=== PATIENT | male | born 1995 | race Caucasian/White ===

== ENCOUNTER 2017-10-11 11:41 | Emergency (ER) | payer OTHER ==
[~2017-10-11] VITALS: Wt 98.2 kg
[2017-10-11] MEDS ORDERED: ONDANSETRON (ODT) 4 MG TAB ODT STA (12:06)
[2017-10-11] MEDS ORDERED: IBUP-1542 PO (12:09)
[2017-10-11] MEDS ORDERED: ONDA4TAB14 PO (12:10)
[2017-10-11] MEDS ORDERED: ACET/BUTAL/CAFF TAB PO ONE (12:30)
--- NOTE | 2017-10-11 20:19 | ERD ---
ER Documentation Chief Complaint Chief Complaint headache/vomiting since last night HPI Patient is a 22-year-old male who presents ED for concerns of a headache and vomiting. Patient states his vomiting started last night. Patient describes the pain to be in his occipital region radiating up to his frontal region bilaterally. Patient states that his current pain level is a 6 out of 10. Patient does work at [employer] is unsure if the recent cold weather and when the weather contributed to his headache. Patient denies any trauma or falls. Patient denies any sudden, 10 out of 10, rapid worsening of his headache. Patient denies that this is the worst headache of his life. Patient states he did take ibuprofen prior to arrival which has significantly decreased his pain. Patient states that his current pain was a 4 out of 10. Patient denies any blurry vision, photophobia, phonophobia, neck pain, neck stiffness, chest pain, shortness of breath, back pain or LOC. Patient states 1 hour ago he started to vomit. Patient states he did eat [employer] for lunch. Patient is unsure if something he ate is contributing to his vomiting. Patient denies any abdominal pain, dysuria, frequency, urgency or hematuria. No recent travel. No sick contacts. Patient is speaking in full sentences. Patient is ambulate without any difficulty. Patient denied any unilateral weakness. ROS All systems reviewed and are negative except as per history of present illness. Medications Home Meds Active Scripts Ondansetron (Ondansetron Odt) 4 Mg Tab.rapdis, 8 MG PO Q6H Y for NAUSEA AND/OR VOMITING, #10 TAB Prov:JUDY PERRIN PA-C 10/11/17 Ibuprofen* (Motrin*) 600 Mg Tab, 600 MG PO Q6, #20 TAB Prov:JUDY PERRIN PA-C 10/11/17 Allergies Allergies: Coded Allergies: amoxicillin (Verified Allergy, Intermediate, rash, 10/11/17) PMhx/Soc Medical and Surgical Hx: pt denies Medical Hx, pt denies Surgical Hx Hx Alcohol Use: Yes (beer:occassional) Hx Substance Use: No Hx Tobacco Use: No Smoking Status: Never smoker Physical Exam Vitals Vital Signs Date Time Temp Pulse Resp B/P Pulse Ox O2 Delivery O2 Flow Rate FiO2 10/11/17 11:48 98.1 78 20 113/62 96 Physical Exam GENERAL: Well-developed, well-nourished male. Appears in no acute distress. Speaking in full sentences. HEAD: Normocephalic, atraumatic. No deformities or ecchymosis. No obvious scalp lacerations or hematomas noted. EYE: Pupils equal, round, and reactive to light. EOMs intact. No conjunctival erythema. No eye discharge. ENT: External ear without any masses or tenderness. TM visualized bilaterally, non-erythematous, non-bulging. Nasal mucosa pink with no discharge. Oropharynx is pink without any tonsillar erythema or exudates. No uvula deviation. No kissing tonsils. NECK: Supple. No meningismus. Normal ROM of the neck. Bilateral trapezius muscles tender to palpation. LUNG: Clear to auscultation bilaterally. No rhonchi, wheezing, rales or coarse breath sounds. HEART: Regular rate and rhythm. No murmurs, rubs or gallops. ABDOMEN: Soft, nontender, and nondistended. Positive bowel sounds in all four quadrants. No rebound tenderness, no guarding. (-) McBurney's point tenderness. No CVA tenderness. BACK: No midline tenderness. EXTREMITIES: Equal pulses bilaterally. No peripheral clubbing, cyanosis or edema. No unilateral leg swelling. NEUROLOGIC: Alert and oriented x3, cooperative. Mood and affect appropriate to situation. Cranial nerves II through XII are grossly intact. Normal speech. Motor exam: 5/5 strength in upper and lower extremities. Sensory exam: Sensation intact to light touch on all four extremities. Cerebellar function exam: No dysmetria on jnyunz-cd-nliz and pjwg-td-pqrq test. Steady gait. No pronator drift. SKIN: Normal color. Warm and dry. No rashes or lesions. Results 24 hrs Current Medications Medications (Trade) Dose Ordered Sig/Robson Route PRN Reason Start Time Stop Time Status Last Admin Dose Admin Acetaminophen/ Butalbital/ Caffeine (Fioricet) 1 tab ONCE ONCE PO 10/11/17 12:30 10/11/17 12:31 DC 10/11/17 12:28 Ondansetron HCl (Zofran Odt) 4 mg ONCE STAT ODT 10/11/17 12:06 10/11/17 12:07 DC 10/11/17 12:15 Procedures/MDM MEDICAL DECISION MAKING: This is 22-year-old male presents with headache and vomiting. Headache started last night. Patient states he did take ibuprofen prior to his arrival which did significantly relieve his pain. Patient states her lunch this afternoon he had [employer]. Patient's vomiting started only after eating [employer]. Vital signs were reviewed. Patient was afebrile. Patient is not hypoxic. Patient denied current headache being the worst headache of his life. Patient denied any fevers, neck stiffness, visual changes or LOC. Full neurological exam was normal. Patient was given Fioricet and Zofran for his symptoms. Upon reevaluation, patient reported complete resolution of pain. Patient stated that he no longer had a headache. Patient also denied any additional episodes of nausea or vomiting. At this time of the patient's presentation is most consistent with tension versus migraine headache. Patient's vomiting may also be related to a foodborne illness that he developed after eating [employer]. Low suspicion for intracranial hemorrhage, meningitis, encephalitis, intracranial mass, glaucoma, preeclampsia, sinusitis, cluster headache, pancreatitis, cholecystitis, appendicitis. PRESCRIPTIONS: Ibuprofen, Zofran DISCHARGE: At this time, patient is stable for discharge and outpatient management. I have encouraged the patient to hydrate well. I have instructed the patient to follow- up with his/her primary care physician in 1-2 days. If symptoms persist, patient may need to see a specialist for further examinations and testing. I have instructed the patient to promptly return to the ER at any time for any new or worsening symptoms including increased increased pain, fever, nausea, vomiting, numbness, neck stiffness, visual changes, weakness or LOC. The patient and/or family expressed understanding of and agreement with this plan. All questions were answered. Home care instructions were provided. Disclaimer: Inadvertent spelling and grammatical errors are likely due to EHR/ dictation software use and do not reflect on the overall quality of patient care. Also, please note that the electronic time recorded on this note does not necessarily reflect the actual time of the patient encounter. Departure Diagnosis: Primary Impression: Headache Headache type: unspecified Headache chronicity pattern: unspecified pattern Intractability: not intractable Qualified Code: R51 - Nonintractable headache, unspecified chronicity pattern, unspecified headache type Additional Impression: Vomiting Vomiting type: unspecified Vomiting Intractability: unspecified Nausea presence: unspecified Qualified Code: R11.10 - Vomiting, intractability of vomiting not specified, presence of nausea not specified, unspecified vomiting type Condition: Stable Patient Instructions: Self-Care for Headaches, Vomiting (6Y-Adult) Referrals: [facility] YOU HAVE RECEIVED A MEDICAL SCREENING EXAM AND THE RESULTS INDICATE THAT YOU DO NOT HAVE A CONDITION THAT REQUIRES URGENT TREATMENT IN THE EMERGENCY DEPARTMENT. FURTHER EVALUATION AND TREATMENT OF YOUR CONDITION CAN WAIT UNTIL YOU ARE SEEN IN YOUR DOCTORS OFFICE WITHIN THE NEXT 1-2 DAYS. IT IS YOUR RESPONSIBILITY TO MAKE AN APPOINTMENT FOR FOLOW-UP CARE. IF YOU HAVE A PRIMARY DOCTOR --you should call your primary doctor and schedule an appointment IF YOU DO NOT HAVE A PRIMARY DOCTOR YOU CAN CALL OUR PHYSICIAN REFERRAL HOTLINE AT IF YOU CAN NOT AFFORD TO SEE A PHYSICIAN YOU CAN CHOSE FROM THE FOLLOWING [facility] [address] [email or web address] [address] [address] [facility] [email or web address] [address] [facility] [address] [facility] [address] [facility] [facility] [address] [facility]. [facility] YOU HAVE RECEIVED A MEDICAL SCREENING EXAM AND THE RESULTS INDICATE THAT YOU DO NOT HAVE A CONDITION THAT REQUIRES URGENT TREATMENT IN THE EMERGENCY DEPARTMENT. FURTHER EVALUATION AND TREATMENT OF YOUR CONDITION CAN WAIT UNTIL YOU ARE SEEN IN YOUR DOCTORS OFFICE WITHIN THE NEXT 1-2 DAYS. IT IS YOUR RESPONSIBILITY TO MAKE AN APPOINTMENT FOR FOLOW-UP CARE. IF YOU HAVE A PRIMARY DOCTOR --you should call your primary doctor and schedule and appointment IF YOU DO NOT HAVE A PRIMARY DOCTOR YOU CAN CALL OUR PHYSICIAN REFERRAL HOTLINE AT . IF YOU CAN NOT AFFORD TO SEE A PHYSICIAN YOU CAN CHOSE FROM THE FOLLOWING [facility] INSTITUTIONS: [facility] [address] [address] [facility] [address] [place] [address] [facility] + [facility] [address] [place] [address] Additional Instructions: Drink plenty of fluids. Stay hydrated. Return for any new or worsening symptoms. Call your primary care doctor TOMORROW for an appointment during the next 1-2 days.See the doctor sooner or return here if your condition worsens before your appointment time. JUDY PERRIN PA-C Oct 11, 2017 20:19
== END 2017-10-11 13:10 | disposition home or self-care (01) ==
LOC: FTE 11:41
DX: R51 Headache (principal); R11.10 Vomiting, unspecified
CPT/HCPCS: Z7502; Z7610; 99283